=== PATIENT | female | born 1965 | race Caucasian/White ===

== ENCOUNTER 2019-09-13 17:16 | Outpatient (CLI) | payer BC ==
--- NOTE | 2019-09-13 17:43 | RAD ---
EXAM: Chest Two Views 09/13/2019 5:41 PM HISTORY: Shortness of breath COMPARISON: July 16, 2012 FINDINGS: Heart: Normal in size and contour. Pulmonary vessels: Normal. Costophrenic angles: Clear. Lungs: No acute airspace consolidation. Pneumothorax: None. Osseous structures:Intact. Additional findings: None. IMPRESSION: No significant acute intrathoracic disease.
== END 2019-09-13 17:17 | disposition home or self-care (01) ==
LOC: SCSRAD 17:16
PROVIDERS: ATTEND Family Medicine
DX: R07.9 Chest pain, unspecified (principal)
CPT/HCPCS: 36415; 71046; 80053; 80061; 82550; 82553; 83036; 83525; 84436; 84443; 84480; 84484; 85025

== ENCOUNTER 2019-09-22 08:48 | Outpatient (CLI) | payer BC ==
--- NOTE | 2019-09-22 09:54 | RAD ---
XR Barium Swallow Esophagus History: Dysphagia. K 21.9 gastroesophageal reflux disease Comparison: None Findings: Patient was brought to the fluoroscopy suite. All questions were answered. [employer] radiograph of the chest was normal. Patient was initially given a half dose of gas-forming crystals. Next thick liquid barium was given. Primary and secondary peristalsis was normal. No extrinsic mass effect. No stricture. No diverticulum. Next a 13 mm tablet wasn't measured which passed with ease. Next the patient was put in the MAHAN position and given thin liquid barium to continuously drink. Agai n primary and secondary peristalsis was normal. No significant hernia. No reflux. Impression: Normal esophagram. Fluoroscopy time: 0.9 minutes
== END 2019-09-22 08:49 | disposition home or self-care (01) ==
LOC: RAD 08:48
PROVIDERS: ATTEND Surgery
DX: K21.9 Gastro-esophageal reflux disease without esophagitis (principal)
CPT/HCPCS: 74220

== ENCOUNTER 2021-11-30 10:59 | Outpatient (CLI) | payer OTHER | END 2021-11-30 11:00 | disposition home or self-care (01) | LOC: CT 10:59 | PROVIDERS: ATTEND Neurological Surgery | DX: M54.6 Pain in thoracic spine (principal); M54.2 Cervicalgia; M54.50 Low back pain, unspecified; M47.812 Spondylosis without myelopathy or radiculopathy, cervical region; M48.02 Spinal stenosis, cervical region; M47.814 Spondylosis without myelopathy or radiculopathy, thoracic region; M47.817 Spondylosis without myelopathy or radiculopathy, lumbosacral region | CPT/HCPCS: 72125; 72128; 72131 ==